=== PATIENT | female | born 1950 | race Caucasian/White ===

== ENCOUNTER → 2017-02-09 08:35 | Day surgery (SDC) | payer MEDICARE ==
--- NOTE | 2017-02-03 05:23 | HP ---
HISTORY AND PHYSICAL: DATE OF PLANNED ADMISSION AND SURGERY: 02/09/17 HISTORY OF PRESENT ILLNESS: Ms. Renae is a 66-year-old white female who is admitted with a left renal calculus for shockwave lithotripsy. Ms. Renae is a known stone former and had required a shockwave lithotripsy of a right renal calculus in 2008. She was worked up in July 2016 because of left flank pain and was noted to have an obstructing 1 cm calculus at the left ureteropelvic junction. She underwent a stent placement and then underwent a left ureteroscopy and pyeloscopy and laser lithotripsy of the renal calculus. Followup KUB showed a 6 to 7 mm calculus in the renal pelvis. There was associated [id number] dilatation of the upper pole calyces. She has otherwise been asymptomatic, having no flank pain. Because of the above history and finding and the presence of the stone in the renal pelvis, with the risk of causing another episode of renal colic, the patient is admitted for shockwave lithotripsy. PAST MEDICAL HISTORY AND SYSTEM REVIEW: She is healthy. She denies any cardiac or pulmonary diseases or symptoms. MEDICATIONS: Her only medications are Nexium for GERD and Singulair for asthma as needed. ALLERGIES: She denies any allergies to medications. PHYSICAL EXAMINATION GENERAL: Pleasant and healthy-looking white female. VITAL SIGNS: Blood pressure 110/80, pulse of 90. LUNGS: Clear. HEART: Regular and rhythmic. No murmurs. ABDOMEN: Soft. No masses, no tenderness, and no CVA tenderness. IMPRESSION: Residual 7 mm calculus in the area of the left renal pelvis with mild- to-moderate dilatation of the upper pole calyces. PLAN: Considering the size of the stone and the fact that it will be unlikely for it to pass spontaneously, the plan is to perform an elective shockwave lithotripsy of the right renal calculus. I discussed the above plans in detail with the patient. All her questions were answered. CC: Dr. Elizabeth Hale* [id number]/[facility] #: [id number] MTDD
--- NOTE | 2017-02-05 14:15 | HP ---
HISTORY AND PHYSICAL:* ADDENDUM: PLAN: In my original history and physical that I stated I mentioned that the plan is to perform an elective shock wave lithotripsy. The correct side is the left side, so the plan is for elective shock wave lithotripsy of a left renal calculus. [id number]/[facility] #: [id number] MTDD
[~2017-02-09 08:35] MED LIST: Buffered Lidocaine 1% SYRIN* 3 ML/SYR SYRINGE INTRADERM ONE; Chloroprocaine 2%* 20 ML VIAL ONE; Dexamethasone IV* 4 MG/ML 1 ML (4 MG) ONE; DiMENhydriNATE IV* 50 MG/ML VIAL IV PUSH PRN; Famotidine IV* 10 MG/ML 2 ML (20 mg) IV ONE; Famotidine IV* 10 MG/ML 2 ML (20 mg) ONE; KETAMINE HCL* 50 MG/ML 10 ML VIAL ONE; Ketorolac INJ* 30 MG/ML 1 ML VIAL ONE; Lidocaine 2% PF* 5 ML VIAL ONE; Metoclopramide TAB* 10 MG ONE; Metoclopramide TAB* 10 MG PO ONE; Midazolam* 1 MG/ML 5 ML VIAL (5 MG) ONE; Ondansetron INJ* 2 MG/ML VIAL IV PRN; Ondansetron INJ* 2 MG/ML VIAL ONE; Propofol* 10 MG/ML 20 ML BTL IV PUSH ONE; cefTRIAXone VIAL(*) 1,000 MG in NS 0.9% 50 ML* 50 ML IVPB ONE; fentaNYL* 50 MCG/ML 2 ML VIAL (100 MCG VIAL) IV PRN; fentaNYL* 50 MCG/ML 2 ML VIAL (100 MCG VIAL) ONE; oxyCODONE/Acetamin 5/325 MG* TAB PO PRN
--- NOTE | 2017-02-09 09:22 | RAD ---
HISTORY: Shock wave lithotripsy, left renal calculus COMPARISONS: October 30, 2016 VIEWS: Frontal views of the abdomen. FINDINGS: BOWEL: There is a nonspecific bowel gas pattern, with nondilated small bowel gas noted. CALCULI: Again noted are calculi overlying the left renal parenchyma shadow. There is a 0.6] on the left. This is stable.. BONES AND SOFT TISSUES: Degenerative changes are noted OTHER FINDINGS: The lung bases are clear. There is no subphrenic gas. IMPRESSION: STABLE LEFT NEPHROLITHIASIS
[2017-02-09 13:02] VITALS: BP 122/83
--- NOTE | 2017-02-10 05:26 | OP ---
CC: Dr. Elizabeth Hale OPERATIVE REPORT: DATE OF OPERATION: 02/09/17 DATE OF : 52 SURGEON: Albert Aguayo MD ANESTHESIOLOGIST: Dr. Claudio Pitts. ANESTHESIA: Spinal. PRE-OP DIAGNOSIS: Left renal calculus (7 mm). POST-OP DIAGNOSIS: Left renal calculus (7 mm). OPERATIONS: Shockwave lithotripsy of left renal calculus. INDICATION FOR PROCEDURE: Mrs. Renae is a 66-year-old white female who is a known stone former and who last year required treatment of an obstructing 1 cm left renal calculus. She has a residual 7 mm stone fragment in the left renal pelvis. Because of the size of the stone and the unlikelihood that it will pass spontaneously, the patient admitted for the above procedure. PATHOLOGY: Preoperative KUB and fluoroscopy both showed a 7 mm radio opaque calculus in the area of the left renal pelvis. DESCRIPTION OF PROCEDURE: After successful spinal anesthesia, the patient was placed in the supine position on the shockwave lithotripsy table. The left renal calculus was visualized in both the PA and the oblique x-ray views and the position of the generator and of the patient were adjusted to have the stone in the focus of the shock waves. A total of 2,400 shocks were then delivered at a rate of 60 to 90 shocks per minute. A 3-minute break was taken after the initial 200 shocks. The proper positioning and fragmentation of the stone were monitored periodically. At the completion of the treatment, the stone seemed to have broken and to have gotten smaller in size. The stone, however, could still be seen on fluoroscopy. The patient tolerated the procedure well and left the operating room in good condition. [id number]/[facility] #: [id number] [facility] CENTERMarcial
== END | disposition home or self-care (01) ==
LOC: OR 08:35
PROVIDERS: ATTEND Urology
DX: N20.0 Calculus of kidney (principal); J45.909 Unspecified asthma, uncomplicated; K21.9 Gastro-esophageal reflux disease without esophagitis
CPT/HCPCS: 74000; A9270-GY; J0696; J1100; J1885; J2250; J2400; J2405; J2704; J3010

== ENCOUNTER 2018-05-29 10:20 | Emergency (ER) | payer MEDICARE, OTHER ==
[2018-05-29 10:52] VITALS: BP 116/81
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
== END 2018-05-29 11:19 | disposition home health service (06) ==
LOC: UCEAST 10:20
DX: M54.2 Cervicalgia (principal)
CPT/HCPCS: 99213; G0463

== ENCOUNTER 2018-05-29 11:46 | Emergency (ER) | payer OTHER ==
[2018-05-29] MEDS ORDERED: Ketorolac INJ* 30 MG/ML 1 ML VIAL IM ONE (12:01)
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
--- NOTE | 2018-05-29 12:38 | RAD ---
Indication: Neck injury. CT of the cervical spine was obtained in the axial plane. Sagittal and coronal reconstructed images were obtained. The skull base demonstrates no fracture. Mastoid air cells are well aerated. The C1 ring is intact. No fractures identified. Degenerative changes of the atlantoaxial joint is noted. The vertebral bodies appear normal in height. No fracture is noted. At C2-C3 spondylitic ridge with right uncovertebral joint hypertrophy narrows the right foramen. At C3-C4 spondylitic ridge is noted. Right uncovertebral joint hypertrophy and right facet arthropathy results in right foraminal stenosis. At C4-C5 spondylitic ridge is noted. No central or foraminal stenosis is noted. At C5-C6 there is bridging syndesmophytes posteriorly with ankylosis of C5-C6. There is flattening of the thecal sac. No foraminal stenosis is noted. At C6-C7 spondylitic ridge flattens the thecal sac. Facet arthropathy is noted. No central foraminal stenosis is noted. IMPRESSION: No fracture of the cervical spine is noted. Degenerative changes of the atlantoaxial joint is noted. Multilevel degenerative disc disease with ankylosis and bridging syndesmophytes are noted C5-C6 and C6-C7.
[2018-05-29 13:27] VITALS: BP 126/84
== END 2018-05-29 13:26 | disposition home or self-care (01) ==
LOC: ED 11:46
DX: S16.1XXA Strain of muscle, fascia and tendon at neck level, initial encounter (principal); V49.9XXA Car occupant (driver) (passenger) injured in unspecified traffic accident, initial encounter; Y92.9 Unspecified place or not applicable
CPT/HCPCS: 72125; 96372; 99282; J1885